=== PATIENT | female | born 1975 | race Caucasian/White ===

== ENCOUNTER 2020-03-09 12:46 | Emergency (ER) | payer OTHER ==
[~2020-03-09] VITALS: Ht 180.3 cm; Wt 101.6 kg
[2020-03-09 13:10] VITALS: Ht 180.3 cm; Wt 101.6 kg
[2020-03-09 14:54] LABS: ALBUMIN 3.8 g/dL (3.4-5.0); ALKALINE PHOSPHATASE 67 U/L (46-116); ALT/SGPT 28 U/L (14-59); AST/SGOT 45 U/L (15-37); BILIRUBIN TOTAL 0.5 mg/dL (0.20-1.00); CHLORIDE SERUM 103 mmol/L (98-107); CREATININE SERUM 0.9 mg/dL (0.6-1.0); GFR1 > 60 mL/min; GLUCOSE SERUM 85 mg/dL (74-106); LIPASE 154 IU/L (73-393); SODIUM SERUM 137 mmol/L (136-145); TOTAL PROTEIN, SERUM 6.4 g/dL (6.4-8.2)
[2020-03-09 15:03] LABS: BASOPHIL % 0.7 % (0-2); PLATELET COUNT 158 x10^3mcL (130-400)
[2020-03-09 15:03] LABS: CALCIUM 8.1 mg/dL (8.5-10.1)
[2020-03-09 15:04] LABS: RED CELL DISTRIBUTION WIDTH 15.2 % (11.5-14.5)
[2020-03-09 16:42] LABS: AMPHETAMINE QUAL UR NONE DETECTED (See below)
[2020-03-09 19:20] VITALS: BP 151/71
== END 2020-03-09 19:00 | disposition home or self-care (01) ==
LOC: ED 12:46
PROVIDERS: Emergency Medicine
DX: F31.9 Bipolar disorder, unspecified (principal); E86.0 Dehydration; R10.84 Generalized abdominal pain; D64.9 Anemia, unspecified; Z98.84 Bariatric surgery status; Z88.1 Allergy status to other antibiotic agents; Z86.19 Personal history of other infectious and parasitic diseases
CPT/HCPCS: 83880; Q0092